=== PATIENT | female | born 1960 ===

== ENCOUNTER 2024-05-21 06:00 | Outpatient (RCR) | payer OTHER, SELFPAY | END 2024-05-25 23:59 | disposition home or self-care (01) | LOC: GPT 06:00 | PROVIDERS: Visit Provider Orthopaedic Surgery Orthopaedic Trauma | DX: Z47.1 Aftercare following joint replacement surgery (principal); Z96.652 Presence of left artificial knee joint | CPT/HCPCS: 97110; 97161; 97530 ==

== ENCOUNTER 2024-05-26 06:00 | Outpatient (RCR) | payer MEDICARE, SELFPAY | END 2024-06-25 23:59 | disposition home or self-care (01) | LOC: GPT 06:00 | PROVIDERS: Visit Provider Orthopaedic Surgery Orthopaedic Trauma | DX: Z47.1 Aftercare following joint replacement surgery (principal); Z96.652 Presence of left artificial knee joint | CPT/HCPCS: 97110; 97530 ==